=== PATIENT | female | born 1990 ===

== ENCOUNTER → 2020-02-05 | Outpatient (CLI) | payer MEDICAID ==
[2020-02-05 14:50] LABS: BACTERIA (WET MOUNT) 4+ BACTERIA SEEN; EPITHELIALS (WET MOUNT) 3+ EPITHELIALS SEEN; RBCS (WET MOUNT) FEW RBCS SEEN; T.VAGINALIS (WET MOUNT) NO TRICHOMONAS SEEN; WBCS (WET MOUNT) RARE WBCS SEEN; YEAST (WET MOUNT) NO YEAST SEEN
[2020-02-05 16:21] LABS: CHLAM PCR NOT DETECTED (NOT DETECT)
== END ==
LOC: LAB 14:47
PROVIDERS: ATTEND Nurse Practitioner Family
DX: R35.0 Frequency of micturition (principal); R10.84 Generalized abdominal pain
CPT/HCPCS: 87086; 87210; 87491; 87591